=== PATIENT | male | born 1995 | race Caucasian/White ===

== ENCOUNTER 2023-03-20 19:06 | Emergency (ER) | payer SELFPAY ==
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
[2023-03-20 19:21] VITALS: BP 149/90; PULSE 99; RESP 18; TEMP 37.7; O2SAT 96
[2023-03-20] MEDS: KETOROLAC 30 MG/ML VIAL (*BKC) 60 MG IM (20:27)
[2023-03-20] MEDS: AMOXICILLIN 500 MG CAPSULE PO (20:36)
[2023-03-20 20:38] VITALS: BP 144/87; PULSE 84; RESP 18; O2SAT 99
== END 2023-03-20 20:47 | disposition home or self-care (01) ==
PROVIDERS: Emergency Provider Internal Medicine Critical Care Medicine
DX: S09.90XA Unspecified injury of head, initial encounter (principal); S09.93XA Unspecified injury of face, initial encounter; S02.2XXA Fracture of nasal bones, initial encounter for closed fracture; Y04.2XXA Assault by strike against or bumped into by another person, initial encounter
CPT/HCPCS: 70450; 70486; 96372; 99284; A9270; J1885